=== PATIENT | male | born 1955 | race African-American/Black ===

== ENCOUNTER 2025-03-03 03:09 | Emergency (ER) | payer OTHER, MEDICAID ==
[~2025-03-03] VITALS: Ht 177.8 cm; Wt 77.0 kg
[2025-03-03 03:11] VITALS: O2SAT 99
[2025-03-03 06:26] VITALS: BP 133/75; PULSE 79; RESP 22; TEMP 36.6; O2SAT 98
== END 2025-03-03 06:42 | disposition home or self-care (01) ==
LOC: ER 03:09
DX: S09.90XA Unspecified injury of head, initial encounter (principal); G20.A1 Parkinson's disease without dyskinesia, without mention of fluctuations; V47.5XXA Car driver injured in collision with fixed or stationary object in traffic accident, initial encounter; Y93.89 Activity, other specified; Y92.410 Unspecified street and highway as the place of occurrence of the external cause; Y99.8 Other external cause status
CPT/HCPCS: 71045; 72100; 99291